=== PATIENT | female | born 1940 | race Caucasian/White ===

== ENCOUNTER 2021-02-26 10:32 | Day surgery (SDC) | payer MEDICARE, OTHER ==
[2021-02-26] VITALS (10 sets, daily range): BP systolic 99–159; BP diastolic 62–89; PULSE 71–83; TEMP 97.9–98.6
[~2021-02-26] VITALS: Ht 160 cm; Wt 60.6 kg
[2021-02-26] MEDS ORDERED: NORVASC 10MG10 MG PO (10:52)
[2021-02-26] MEDS ORDERED: TENORMIN 2525 MG/TAB PO (10:52)
[2021-02-26] MEDS ORDERED: STIOLTO RESPIMAT4 GM IH (10:52)
[2021-02-26] MEDS ORDERED: COZAAR 50MG50 MG/TAB PO (10:53)
[2021-02-26] MEDS ORDERED: FLEXERIL 1010 MG/TAB PO (10:53)
[2021-02-26] MEDS ORDERED: GLUCOPHAGE500 MG/TAB PO (10:54)
[2021-02-26] MEDS ORDERED: LIPITOR20 MG PO (10:55)
[2021-02-26] MEDS ORDERED: SKELAXIN 800MG800 MG PO (10:55)
[2021-02-26] MEDS ORDERED: ZYRTEC 10MG10 MG PO (10:55)
[2021-02-26] MEDS ORDERED: ASPIRIN E.C. 8181 MG PO (10:56)
[2021-02-26] MEDS ORDERED: OMEGA-3 1000 MG1 CAP PO (10:56)
[2021-02-26] MEDS ORDERED: CALTRATE-600 W600 MG PO (10:56)
[2021-02-26] MEDS ORDERED: NATURAL ODORLE400 MG PO (10:58)
[2021-02-26] MEDS ORDERED: OSTEO-BI-FLEX 21 TAB PO (10:59)
[2021-02-26] MEDS ORDERED: VITAMIN C500 MG PO (10:59)
[2021-02-26] MEDS ORDERED: MULTIPLE VITAMI1 TA5 PO (10:59)
[2021-02-26] MEDS ORDERED: ALEVE 220MG220 MG PO (11:00)
[2021-02-26 11:54] LABS: HEMATOCRIT 39.3 % (37.0-47.0); HEMOGLOBIN 13.2 g/dl (12.5-16.0); MEAN CELL VOLUME 91 fl (80.0-100.0); MEAN CORPUSCULAR HEMOGLOBIN 31 pg (27.0-31.0); MEAN CORPUSCULAR HGB CONC 34 g/dl (33.0-37.0); MEAN PLATELET VOLUME 8.9 fl (7.4-10.4); PLATELET COUNT 307 K/mm3 (130-400); REDCELL DISTRIBUTION WIDTH-CV 14.1 % (11.5-14.5)
[2021-02-26 12:02] LABS: CALCIUM 9.9 mg/dL (8.4-10.2); CREATININE, serum 0.64 (0.52-1.25); POTASSIUM 4.3 mmol/L (3.4-5.0)
[2021-02-26 13:49] LABS: INR 1.1 (0.8-3.0); PROTHROMBIN TIME 12.1 SECONDS (9.7-12.8)
[2021-02-26 13:52] LABS: PARTIAL THROMBOPLASTIN TIME 39.8 SECONDS (26.0-37.0)
[2021-02-26] MEDS ORDERED: PLAVIX 75MG TAB75 MG PO (14:17)
--- NOTE | 2021-02-26 15:05 | NUR ---
Patient to room 356 from the manager labor delivery. A&Ox3. VSS. IV CDI, fluids to gravity. HRR, telemetry on chest. Denies pain and discomfort. Radial band right wrist, CDI. Nurse oriented patient to location, call light and room. No further needs expressed from the patient. Postop VS monitored. Call light within reach
--- NOTE | 2021-02-26 17:25 | NUR ---
3ML AIR REMOVED FROM TR BAND, NO ACTIVE BLEEDING. WILL CONTINUE TO ASSESS. CMS WNL CALL LIGHT WITHIN REACH
--- NOTE | 2021-02-26 18:07 | NUR ---
3mls air removed from TR band. No active bleeding. Will continue to assess. Call light within reach
--- NOTE | 2021-02-26 18:26 | NUR ---
Patient resting in bed watching TV. A&Ox3. VSS. IV CDI. Radial band right wrist, CDI. 6ml air removed. No active bleeding. Denies pain and discomfort. No further needs expressed from the patient. Call light within reach
--- NOTE | 2021-02-26 18:30 | NUR ---
TR band removed, no active bleeding. Gauze and paper tape applied. Nurse instructed patient to not put pressure/weight on right arm. Patient verbalized an understanding. VSS. Denies pain and discomfort. No further needs expressed from the patient. Call light within reach
--- NOTE | 2021-02-26 23:57 | NUR ---
Patient assessed around 192. Alert and oriented x 4, and able to make needs known. Denies having pain and discomfort at this time. Peripheral INT to left AC. Denies SOB and dyspnea. LS CTA. Respirations even and unlabored. HRR. Telemetry in place. Capillary refill less than 3 seconds. Non-tenting skin turgor. BSAx4. Abdomen soft and non-tender. No edema. Right radial heart cath site is without pain and hematoma. Gauze/paper tape to site is CDI. Patient voices no questions, needs, or concerns at this time. Resting in bed with call light within reach.
[2021-02-27 01:15] VITALS: BP 130/83; PULSE 81; TEMP 98.4
[2021-02-27 04:34] VITALS: BP 129/70; PULSE 88; TEMP 97.6
--- NOTE | 2021-02-27 05:08 | NUR ---
Patient has denied having pain and discomfort to right radial site. Telemetry shows NS. Voices no questions, needs, or concerns at this time.
[2021-02-27 07:49] VITALS: BP 130/75; PULSE 92; TEMP 98.3
[2021-02-27] MEDS ORDERED: LIPITOR20 MG PO (11:17)
[2021-02-27] MEDS ORDERED: PROTONIX 40MG T40 MG PO (11:17)
[2021-02-27 11:25] VITALS: BP 145/96; PULSE 77; TEMP 97.7
== END 2021-02-27 13:25 | disposition home or self-care (01) ==
LOC: COL.CAR 10:32 → MEDICAL 14:12 → COL.CAR 02-27 13:25
PROVIDERS: Internal Medicine Cardiovascular Disease
DX: I25.10 Atherosclerotic heart disease of native coronary artery without angina pectoris (principal); I10 Essential (primary) hypertension; E11.9 Type 2 diabetes mellitus without complications; K21.9 Gastro-esophageal reflux disease without esophagitis; J44.9 Chronic obstructive pulmonary disease, unspecified; E78.5 Hyperlipidemia, unspecified; F17.210 Nicotine dependence, cigarettes, uncomplicated; M19.90 Unspecified osteoarthritis, unspecified site; Z20.822 Contact with and (suspected) exposure to COVID-19; Z79.899 Other long term (current) drug therapy; Z79.82 Long term (current) use of aspirin; Z79.1 Long term (current) use of non-steroidal anti-inflammatories (NSAID); Z79.84 Long term (current) use of oral hypoglycemic drugs
CPT/HCPCS: OP; C1725; C1769; C1874; C1887; C9600; J1644; J2250; J3010; J7030

== ENCOUNTER 2024-04-28 14:21 | Emergency (ER) | payer MEDICARE, OTHER ==
[2024-04-28] VITALS (7 sets, daily range): BP systolic 106–122; BP diastolic 62–867; PULSE 105–112; TEMP 97.7–99.7
[~2024-04-28] VITALS: Ht 139.7 cm; Wt 43.2 kg
[~2024-04-28 14:21] MED LIST: ALEVE 220MG220 MG PO; ASPIRIN E.C. 8181 MG PO; CALTRATE-600 W600 MG PO; COZAAR 50MG50 MG/TAB PO; FLEXERIL 1010 MG/TAB PO; GLUCOPHAGE500 MG/TAB PO; LIPITOR20 MG PO; MULTIPLE VITAMI1 TA5 PO; NATURAL ODORLE400 MG PO; NORVASC 10MG10 MG PO; OMEGA-3 1000 MG1 CAP PO; OSTEO-BI-FLEX 21 TAB PO; PLAVIX 75MG TAB75 MG PO; PROTONIX 40MG T40 MG PO; SKELAXIN 800MG800 MG PO; STIOLTO RESPIMAT4 GM IH; TENORMIN 2525 MG/TAB PO; VITAMIN C500 MG PO; ZYRTEC 10MG10 MG PO
[2024-04-28] MEDS ORDERED: NS 1,000 ML IV ONE (14:45)
[2024-04-28] MEDS ORDERED: Pantoprazole 80 MG in NS 100 ML IV ONE (14:45)
[2024-04-28 15:04] LABS: BASO % 0.2 % (0.0-2.0); EOS % 0.1 % (0.0-4.0); GRAN # 14.3 K/mm3 (1.4-6.5); GRAN % 84.9 % (42.2-75.2); INR 1.2 (0.8-3.0); LYMPH # 1.5 K/mm3 (1.2-3.4); LYMPH % 9.1 % (20.0-51.0); MEAN CELL VOLUME 97 fl (80.0-100.0); MEAN CORPUSCULAR HGB CONC 31 g/dl (33.0-37.0); MEAN PLATELET VOLUME 8.9 fl (7.4-10.4); MONO # 0.9 K/mm3 (0.1-0.6); PLATELET COUNT 459 K/mm3 (130-400); PROTHROMBIN TIME 13.3 SECONDS (9.7-12.8); RED BLOOD COUNT 1.55 M/mm3 (4.10-5.30); REDCELL DISTRIBUTION WIDTH-CV 17.2 % (11.5-14.5)
[2024-04-28 15:09] LABS: MEAN CORPUSCULAR HEMOGLOBIN 30 pg (27-31)
[2024-04-28 15:10] LABS: HEMOGLOBIN 4.7 g/dl (12.5-16.0)
[2024-04-28 15:15] LABS: ALBUMIN 2.4 g/dL (3.4-4.8); CALCIUM 9.5 mg/dL (8.4-10.2); CREATININE, serum 0.81 mg/dL (0.57-1.11); POTASSIUM 4.7 mEq/L (3.5-4.5)
[2024-04-28 15:24] LABS: BILIRUBIN,TOTAL 0.2 mg/dL (0.2-1.2)
[2024-04-28] MEDS ORDERED: Iohexol 300 - 100 ML VIAL IV ONE (17:05)
[2024-04-28 20:26] LABS: HEMATOCRIT 19.4 % (37.0-47.0)
[2024-04-28 20:27] LABS: HEMOGLOBIN 6.2 g/dl (12.5-16.0)
== END 2024-04-28 23:20 | disposition short-term general hospital (02) ==
LOC: COL.ER 14:21
PROVIDERS: Physician Assistant
DX: K92.2 Gastrointestinal hemorrhage, unspecified (principal); Z87.891 Personal history of nicotine dependence
CPT/HCPCS: J2470; J7030; P9016; Q9967